=== PATIENT | male | born 1990 | race American Indian/Alaskan Native ===

== ENCOUNTER 2016-06-08 11:25 | Emergency (ER) | payer SELFPAY ==
[2016-06-08 12:14] VITALS: BP 131/79
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
== END 2016-06-08 16:47 | disposition left against medical advice (07) ==
LOC: ED 11:25
DX: M25.552 Pain in left hip (principal); R51 Headache; Z53.21 Procedure and treatment not carried out due to patient leaving prior to being seen by health care provider